=== PATIENT | female | born 1995 | race Caucasian/White ===

== ENCOUNTER 2023-11-18 16:15 | Outpatient (CLI) | payer OTHER, SELFPAY ==
[2023-11-18] VITALS (10 sets, daily range): BP systolic 117–138; BP diastolic 67–81; PULSE 76–106; TEMP 37.1; O2SAT 98; BMI 31.2
[2023-11-18 17:08] LABS: Hematocrit 32.5 % (37-47); Hemoglobin 11.1 g/dL (12.0-15.0); Mean Corp Hgb Conc 34.2 g/dL (32-36); Mean Corpuscular Hgb 29.5 pg (27.0-32.0); Mean Corpuscular Volume 86.4 fL (81-99); Mean Platelet Vol. 11.3 fl (6.2-12.0); Platelet Count 176 K/mm3 (150-450); RBC Distribution Width CV 12.1 % (11.6-14.6); RBC Distribution Width SD 37.9 fl (35.1-43.9); Red Blood Count 3.76 M/mm3 (4.2-5.4); White Blood Count 9.6 K/mm3 (4.4-11.0)
[2023-11-18 17:25] LABS: AST(SGOT) 17 U/L (15-37); Alanine Aminotransfer ALT/SGPT 20 U/L (13-56); Creatinine, Serum 0.55 mg/dL (0.55-1.02); EST Glomerular Filtration Rate 138 mL/min (>60); Est Glom Filt Rate - Afr Amer 167 mL/min (>60); Estimated Creatinine Clearance 174.25 ml/min; Uric Acid 3.8 mg/dL (2.6-6.0)
[2023-11-18] MEDS: Acetaminophen 500 MG Tablet 1000 MG PO (17:30)
[2023-11-18 17:59] LABS: Protein, Urine (Random) 6.8 mg/dL (<11.9); Protein:Creat Ratio 158 mg/g CRE (0-200)
--- NOTE | 2023-11-19 06:54 | OB.TRI.NOTE ---
HPI - General General Date of Service: 11/18/23 HPI Narrative BASIM BERNAL, is a 28 F who presents at 32 weeks . Presents for elevated BP in office in the 140s. Dull headache for about a week, 12/11. Seen by Jade Conley CNM. PFSH PFSH Allergy/AdvReac Type Severity Reaction Status Date / Time sulfamethoxazole Allergy Intermediate Hives Verified 11/18/23 17:03 [From Bactrim] trimethoprim [From Bactrim] Allergy Intermediate Hives Verified 11/18/23 17:03 Social History Smoking Status: Never smoker NST FHR Rate Baby A Baseline: 135 Variability:: Moderate Accelerations:: 15 x 15 Decelerations:: None NST Reactive:: Yes Assessment & Plan (1) Elevated blood pressure reading without diagnosis of hypertension: (2) 32 weeks gestation of : PLAN: Plan 1) Labs normal 2) BP stable and no elevation during visit 3) Preeclampsia signs and symptoms reviewed. 4) D/C home follow up outpatient.
== END 2023-11-18 18:30 | disposition home or self-care (01) ==
LOC: WPOUT 16:16 → WP 16:19
PROVIDERS: PCP Nurse Practitioner Family; Referring Provider Advanced Practice Midwife; Visit Provider Advanced Practice Midwife
DX: O99.891 Other specified diseases and conditions complicating pregnancy (principal); R03.0 Elevated blood-pressure reading, without diagnosis of hypertension; Z3A.32 32 weeks gestation of pregnancy
CPT/HCPCS: 36415; 59025; 59050; 82565; 82570; 84156; 84450; 84460; 84550; 85027; 99221; G0378

== ENCOUNTER 2023-11-28 12:25 | Outpatient (CLI) | payer OTHER, SELFPAY ==
[2023-11-28] VITALS (8 sets, daily range): BP systolic 115–125; BP diastolic 66–81; PULSE 80–96; TEMP 36.8; O2SAT 97; BMI 32.1
[2023-11-28 13:07] LABS: Hematocrit 31.8 % (37-47); Hemoglobin 10.9 g/dL (12.0-15.0); Mean Corp Hgb Conc 34.3 g/dL (32-36); Mean Corpuscular Hgb 29.3 pg (27.0-32.0); Mean Corpuscular Volume 85.5 fL (81-99); Mean Platelet Vol. 11.3 fl (6.2-12.0); Platelet Count 164 K/mm3 (150-450); RBC Distribution Width CV 11.9 % (11.6-14.6); Red Blood Count 3.72 M/mm3 (4.2-5.4); White Blood Count 11.8 K/mm3 (4.4-11.0)
[2023-11-28 13:18] LABS: AST(SGOT) 17 U/L (15-37); Alanine Aminotransfer ALT/SGPT 18 U/L (13-56); Creatinine, Serum 0.56 mg/dL (0.55-1.02); EST Glomerular Filtration Rate 136 mL/min (>60); Est Glom Filt Rate - Afr Amer 164 mL/min (>60); Estimated Creatinine Clearance 173.52 ml/min; Uric Acid 4.1 mg/dL (2.6-6.0)
[2023-11-28 13:33] LABS: Creatinine, Urine (random) < 13.00 mg/dL (NO RANGE EST.); Protein, Urine (Random) < 6.0 mg/dL (<11.9)
--- NOTE | 2023-12-24 10:25 | OB.TRI.HP_ITS ---
HPI - General General Date of Admission: 11/28/23 Date of Service: 11/28/23 Chief Complaint: RUQ pain HPI Narrative BASIM BERNAL, is a 28 F who presents with new RUQ pain that is not resolving. No BARBOSA or vision changes. No N/V. No ctx, vb, lof. Good FM. BP has been elevated at home. Maternal Data Information STEVE Calculator Estimated Delivery Date Method Current WG Current Estimate 01/13/24 Manual 37w 1d PFSH PFSH Medical History (Updated 12/24/23 @ 10:[address] Smita Mcpherson, DO) 32 weeks gestation of 36 weeks gestation of Cholestasis Elevated blood pressure reading without diagnosis of hypertension Home Medications vitamins-iron fumarate 65 mg iron-folic acid 1 mg tablet (Mynatal Plus) 1 tab PO DAILY 11/28/23 [History Last Taken 12/22/23 07:00 1 TAB] acetaminophen 500 mg tablet 1,000 mg (2 x 500 mg) PO Q6H PRN PRN Pain 1-10 Or Fever #0 tabs 12/24/23 [Rx Last Taken Unknown] benzocaine 20 %-menthol 0.5 % topical aerosol (Dermoplast (with menthol)) 1 spray topical TID PRN PRN perineal discomfort #0 grams 12/24/23 [Rx Last Taken Unknown] naproxen 500 mg tablet 500 mg PO Q8H PRN PRN Pain Score 1-10 #0 tabs 12/24/23 [Rx Last Taken Unknown] Allergy/AdvReac Type Severity Reaction Status Date / Time sulfamethoxazole Allergy Intermediate Hives Verified 12/22/23 19:38 [From Bactrim] trimethoprim [From Bactrim] Allergy Intermediate Hives Verified 12/22/23 19:38 Surgical History (Updated 12/22/23 @ 20:56 by Evelyn Sifuentes) History of surgery [place] teeth removed Social History Smoking Status: Never smoker History Elective abortions Hx Para 0 Spontaneous abortions Hx # Term Pregnancies Ectopic pregnancies Hx # Pregnancies Multiple births # of living children Physical Exam Const alert and no apparent distress General Appearance: comfortable HEENT normocephalic Resp normal respiratory effort GI soft to palpation and non-distended GI Narrative: Minimal RUQ tenderness, non acute Extremity normal to inspection Extremity Narrative: 3+ patellar reflexes NST FHR Rate Baby A Baseline: 130 Variability:: Moderate Accelerations:: 15 x 15 Decelerations:: None NST Reactive:: Yes Uterine Activity:: no ctx's Assessment & Plan (1) 33 weeks gestation of : PLAN: No other pre e symptoms. Pre e labs normal. No severe range BP's and BP stable. Known gHTN and cholestasis. Ok for discharge home and reviewed return precautions. Has follow up in office tomorrow. (2) RUQ pain:
== END 2023-11-28 14:25 | disposition home or self-care (01) ==
LOC: WPOUT 12:30 → WP 12:31
PROVIDERS: PCP Nurse Practitioner Family; Visit Provider Obstetrics & Gynecology
DX: O99.891 Other specified diseases and conditions complicating pregnancy (principal); R10.11 Right upper quadrant pain; Z3A.33 33 weeks gestation of pregnancy
CPT/HCPCS: 36415; 59025; 59050; 82565; 82570; 84156; 84450; 84460; 84550; 85027; 99221; G0378

== ENCOUNTER 2023-12-21 17:08 | Outpatient (CLI) | payer OTHER, SELFPAY ==
[2023-11-28 12:45] VITALS: RESP 16
[2023-12-21] VITALS (8 sets, daily range): BP systolic 96–138; BP diastolic 53–84; PULSE 88–113; RESP 16; TEMP 36.6–37.2; BMI 32.4
[2023-12-21] MEDS: 0.9 % NaCl (Sterile) Posiflush 10 mL IV (17:45)
[2023-12-21 18:14] LABS: Hematocrit 31.7 % (37-47); Hemoglobin 10.7 g/dL (12.0-15.0); Mean Corp Hgb Conc 33.8 g/dL (32-36); Mean Corpuscular Hgb 28.7 pg (27.0-32.0); Platelet Count 173 K/mm3 (150-450); RBC Distribution Width CV 12.3 % (11.6-14.6); RBC Distribution Width SD 37.2 fl (35.1-43.9); Red Blood Count 3.73 M/mm3 (4.2-5.4); White Blood Count 8.7 K/mm3 (4.4-11.0)
[2023-12-21 18:27] LABS: Protein, Urine (Random) 6.6 mg/dL (<11.9); Protein:Creat Ratio 175 mg/g CRE (0-200)
[2023-12-21 18:28] LABS: AST(SGOT) 23 U/L (15-37); Alanine Aminotransfer ALT/SGPT 20 U/L (13-56); Creatinine, Serum 0.66 mg/dL (0.55-1.02); EST Glomerular Filtration Rate 113 mL/min (>60); Est Glom Filt Rate - Afr Amer 136 mL/min (>60); Estimated Creatinine Clearance 148.09 ml/min; Uric Acid 4.4 mg/dL (2.6-6.0)
[2023-12-21] MEDS: Lactated Ringers 1,000 ML 999 ML IV (19:07)
[2023-12-21] MEDS: Acetaminophen 500 MG Tablet 1000 MG PO (19:08)
[2023-12-21] MEDS: Ondansetron ODT 4 MG Tablet PO (19:08)
--- NOTE | 2023-12-21 20:15 | OB.TRI.NOTE ---
HPI - General General Date of Admission: 12/21/23 Date of Service: 12/21/23 Chief Complaint: Headache and nausea HPI Narrative BASIM BERNAL, is a 28 F who presents with worsening headache and nausea. BP at work was elevated. Diagnosed with cholestasis and scheduled induction on . Tylenol did not help BARBOSA. Has been crying on and off today. Maternal Data Information Final STEVE: 01/13/24 Gestational age: 36+5 PFSH PFSH Home Medications vitamins-iron fumarate 65 mg iron-folic acid 1 mg tablet (Mynatal Plus) 1 tab PO DAILY 11/28/23 [History Last Taken 11/28/23 10:00] ursodiol 300 mg capsule 300 mg PO TID 11/28/23 [History Last Taken 11/28/23 10:00] Allergy/AdvReac Type Severity Reaction Status Date / Time sulfamethoxazole Allergy Intermediate Hives Verified 11/28/23 12:59 [From Bactrim] trimethoprim [From Bactrim] Allergy Intermediate Hives Verified 11/28/23 12:59 Social History Smoking Status: Never smoker ROS Constitutional Constitutional: Reports headache(s) Respiratory/Chest Respiratory/Chest: Reports none Gastrointestinal Gastrointestinal: Reports nausea; Denies change in bowel habits Genitourinary Genitourinary: Denies urinary frequency or urinary hesitancy Neurologic Neurologic: Reports systems reviewed and no addt'l complaints, except as documented Psychiatric Psychiatric: Reports none Physical Exam Const alert and oriented x3 General Appearance: cooperative and comfortable HEENT normocephalic and head/scalp atraumatic Eyes PERRL and EOMs intact bilaterally Neck full ROM Resp normal respiratory effort Effort and Inspection: able to speak in complete sentences Neuro oriented x3 and CN's II-XII intact bilaterally Psych mental status grossly normal and thought process normal NST FHR Rate Baby B Variability:: Moderate Accelerations:: 15 x 15 NST Reactive:: Yes FHR Category:: Category I Assessment & Plan (1) Headache in , antepartum: PLAN: PIH labs normal. All BPs below 140/90 Last 2 under 100/60 (2) 36 weeks gestation of : COMMENT: Headache improved with tylenol, IVF and zofran PLAN: Plan Discussed with patient and . Would like to go home and sleep and return for induction tomorrow. Head improved with Tylenol, Zofran and IVF. Reviewed precautions
== END 2023-12-21 20:20 | disposition home or self-care (01) ==
LOC: WPOUT 17:18 → WP 17:19
PROVIDERS: PCP Nurse Practitioner Family; Referring Provider Obstetrics & Gynecology; Visit Provider Obstetrics & Gynecology
DX: O99.891 Other specified diseases and conditions complicating pregnancy (principal); R51.9 Headache, unspecified; Z3A.36 36 weeks gestation of pregnancy
CPT/HCPCS: 96365; 96366; 36415; 59025; 59050; 82565; 82570; 84156; 84450; 84460; 84550; 85027; 99221; J7120; G0378

== ENCOUNTER 2023-12-22 18:55 | Inpatient (IN) | payer OTHER, SELFPAY ==
[2023-12-22 19:36] VITALS: BMI 32.5
[2023-12-22] MEDS: Lactated Ringers 1,000 ML 50 ML IV (20:01)
--- NOTE | 2023-12-22 20:17 | PCM.HP.OB ---
HPI - General General Date of Admission: 12/22/23 Date of Service: 12/22/23 Chief Complaint: induction of labor HPI Narrative BASIM BERNAL, is a 28 F who presents Maternal Data Information Final STEVE: 01/13/24 Gestational age: 36 6/7 PFSH PFS Home Medications vitamins-iron fumarate 65 mg iron-folic acid 1 mg tablet (Mynatal Plus) 1 tab PO DAILY 11/28/23 [History Last Taken 12/22/23 07:00 1 TAB] ursodiol 300 mg capsule 300 mg PO TID cholestasis 11/28/23 [History Last Taken 12/22/23 17:00 300 mg] Allergy/AdvReac Type Severity Reaction Status Date / Time sulfamethoxazole Allergy Intermediate Hives Verified 12/22/23 19:38 [From Bactrim] trimethoprim [From Bactrim] Allergy Intermediate Hives Verified 12/22/23 19:38 Social History Smoking Status: Never smoker ROS Constitutional Constitutional: Denies fatigue, fever(s) or malaise Eyes Eyes: Denies change in vision ENT HEENT: Denies dizziness or headache(s) Cardiovascular Cardiovascular: Denies chest pain, dyspnea or lightheadedness Respiratory/Chest Respiratory/Chest: Denies cough or dyspnea Gastrointestinal Gastrointestinal: Denies change in bowel habits Genitourinary Genitourinary: Denies burning urination or genital lesions Integumentary Integumentary: Denies rash Neurologic Neurologic: Denies confusion, dizziness, headache(s), numbness or weakness Vital Signs Vital Signs Vital Signs: Weight Weight: 94.461 kg Body Mass Index (BMI) 32.5 Physical Exam Const alert and no apparent distress General Appearance: cooperative HEENT normocephalic Resp normal respiratory effort Cardio regular rate GI soft to palpation GI Narrative: gravid, nontender, appropriate for gestational age Extremity no calf tenderness General Extremity: edema Skin no wounds Rashes: No rashes noted Psych activity/motor behavior normal Labs Labs Labs: Blood Type Pending Antibody Screen Pending Hct 32.7 % (37-47) L Hgb 11.1 g/dL (12.0-15.0) L Syphilis Total Ab Pending Assessment & Plan (1) 36 weeks gestation of : (2) Gestational hypertension: PLAN: Estimated weight is less than 4500 g and pelvis clinically adequate to expect vaginal delivery. Monitor for signs and symptoms of severe preeclampsia. Check preeclampsia labs. Patient will undergo Awad and Cytotec ripening with Pitocin and artificial rupture membranes for induction of labor. May have epidural or routine pain control measures as needed. Undergone cervical ripening for 37-week induction of labor for cholestasis and gestational hypertension. Awad placed over stylette through the internal cervical os and inflated to 30 cc. Placement over internal cervical os was confirmed and then placement of Cytotec 25 mcg in the posterior fourchette. Cervix 2/60/-2, mid position, medium consistency (3) Cholestasis during in third trimester: (4) Supervision of high risk , unspecified, third trimester:
[2023-12-22 20:22] LABS: Absolute Lymphocyte Count 2.08 X10^3/uL (0.83-4.51); Absolute Neutrophil Count 5.6 X10^3/uL (2.0-7.7); Basophil# 0.04 X10^3/uL; Basophil% 0.5 % (0-1); Eosinophil# 0.02 X10^3/uL; Eosinophils% 0.2 % (0-5); Hematocrit 32.7 % (37-47); Hemoglobin 11.1 g/dL (12.0-15.0); Lymphocyte # 2.08 X10^3/ul (0.83-4.51); Lymphocyte % 24.5 % (19-41); Mean Corp Hgb Conc 33.9 g/dL (32-36); Mean Corpuscular Hgb 28.8 pg (27.0-32.0); Mean Corpuscular Volume 84.7 fL (81-99); Mean Platelet Vol. 11.7 fl (6.2-12.0); Monocyte# 0.67 X10^3/uL; Monocyte% 7.9 % (0-10); NRBC Flagged by Analyzer 0 % (0-5); Neutrophil # 5.59 X10^3/uL (2.7-7.7); Neutrophil % 65.7 % (47-70); Platelet Count 161 K/mm3 (150-450); RBC Distribution Width CV 12.4 % (11.6-14.6); RBC Distribution Width SD 37.3 fl (35.1-43.9); Red Blood Count 3.86 M/mm3 (4.2-5.4); White Blood Count 8.5 K/mm3 (4.4-11.0)
[2023-12-22] MEDS: 0.9% Normal Saline Single 100 ML IV.SOLN. INTRA-UTER (20:30)
[2023-12-22] MEDS: miSOPROStol 25 MCG TABLET VAGINAL (20:38)
[2023-12-22 20:45] VITALS: BP 131/78; PULSE 77; PULSE 83; RESP 18; TEMP 36.9; O2SAT 98
[2023-12-22 20:52] VITALS: PULSE 84; O2SAT 98
[2023-12-22 20:59] LABS: Syphilis Antibodies Non-reactive
[2023-12-23] VITALS (63 sets, daily range): BP systolic 90–149; BP diastolic 50–109; PULSE 65–117; RESP 16–18; TEMP 36.8–38.3; O2SAT 93–100
[2023-12-23] MEDS: Oxytocin 15 Units/NS 250ml 15 UNITS/250 ML IV.SOLN 2 UNITS IV (00:52)
[2023-12-23] MEDS: LACTATED RINGERS 500 ML 999 ML IV ×3 (02:00→12:27)
[2023-12-23] MEDS: fentaNYL-bupivacaine (epidural) 100 ML BAG EPIDURAL ×2 (02:53→07:19)
[2023-12-23] MEDS: Ondansetron 4 MG/2 ML Vial IV (06:06)
[2023-12-23] MEDS: Lactated Ringers 1,000 ML 200 ML IV (08:13)
--- NOTE | 2023-12-23 09:04 | PCM.PN.CNM ---
Subjective Subjective Patient seen at bedside. Comfortable with epidural. Objective Data Objective Data Vital Signs: Vital Signs Temp Pulse Resp BP Pulse Ox 98.4 F 75 16 103/61 100 12/23/23 06:08 12/23/23 08:44 12/23/23 06:08 12/23/23 08:44 12/23/23 06:11 Weight: 208 lb 4 oz Body Mass Index (BMI) 32.5 Intake & Output: Intake and Output for Last 24 Hours 12/21/23 12/22/23 12/23/23 23:59 23:59 23:59 Intake Total 2025.83 / 2025.83 Output Total 800 / 800 1550 / 1550 Balance -800 / -800 476.83 / 476.83 Lab / Micro Data 12/22/23 20:00 Labs: Laboratory Results - last 24 hr 12/22/23 20:00: WBC 8.5, RBC 3.86 L, Hgb 11.1 L, Hct 32.7 L, MCV 84.7, MCH 28.8, MCHC 33.9, RDW Std Deviation 37.3, RDW Coeff of [place] 12.4, Plt Count 161, MPV 11.7, Immature Gran % (Auto) 1.200 H, Neut % (Auto) 65.7, Lymph % (Auto) 24.5, Sullivan % (Auto) 7.9, Eos % (Auto) 0.2, Baso % (Auto) 0.5, Absolute Neuts (auto) 5.6, Absolute Lymphs (auto) 2.08, Nucleated RBC % 0, Syphilis Total Ab Non-reactive, Antibody Screen NEGATIVE ROS Eyes Eyes: Denies blurry vision Cardiovascular Cardiovascular: Reports none; Denies chest pain at rest, chest pain with activity or dizziness Respiratory/Chest Respiratory/Chest: Denies cough or dyspnea Gastrointestinal Gastrointestinal: Reports none and other; Denies diarrhea or vomiting Genitourinary Genitourinary: Denies dysuria Musculoskeletal Musculoskeletal: Reports none Integumentary Integumentary: Reports none; Denies rash Neurologic Neurologic: Denies dizziness, headache(s) or other visual disturbances Psychiatric Psychiatric: Reports none Assessment & Plan (1) 37 weeks gestation of : (2) Supervision of high risk , unspecified, third trimester: (3) Cholestasis during in third trimester: (4) Gestational hypertension: (5) Encounter for induction of labor: PLAN: Plan Cat. 1 tracing Continue Pitocin IV and increase per orders Blood pressures stable- continue to monitor Comfortable with epidural Anticipate Dr. Nash updated and is collaborating physician
[2023-12-23] MEDS: Acetaminophen 500 MG Tablet PO (12:26)
[2023-12-23] MEDS: Oxytocin 15 Units/NS 250ml 15 UNITS/250 ML IV.SOLN 83 UNITS IV (16:53)
--- NOTE | 2023-12-23 18:40 | EX.PCM.OBRPT ---
Assessment & Plan (1) (spontaneous vaginal delivery): (2) Laceration, obstetrical, second degree: (3) Cholestasis: (4) Gestational hypertension: Maternal Data Information STEVE Calculator Estimated Delivery Date Method Current WG Current Estimate 01/13/24 Manual 37w 0d Vaginal Delivery Maternal Presentation Maternal Presentation: Medically Indicated Induction Maternal Presentation: G1 at 37 weeks for scheduled induction of labor for cholestasis and GHTN. Type of Induction: Pitocin, Awad Bulb and Amniotomy Medical Reason for Induction: Gestational Hypertension and Maternal Medical Condition: list: (Cholestasis) Operative Information Date of Procedure: 12/23/23 Pre-Operative Diagnosis: Term gestation, Induction of labor Post-Operative Diagnosis: , Live female Surgery / Procedure Performed: Spontaneous Vaginal Delivery Type of Anesthesia: Epidural Drain: Awad to straight drain Estimated Blood Loss: 300 Time of Delivery: 16:25 Findings Description of Procedure: Patient pushing well with contractions. With maternal effort, head delivered followed immediately by body without traction. Loose nuchal cord easily reduced. Vigorous female placed on maternal abdomen and attended to by nursing staff. Pitocin IV started for active management of the third stage of labor. 3 vessel cord clamped and cut by FOB after delay and placed skin to skin with patient. Cord blood collected. Placenta delivered spontaneously and intact. Second degree laceration repaired in usual fashion using Vicryl 3-0 Rapid. Hemostasis obtained. Fundus firm 2 below U. EBL [address]. APGARS 8/9. Dr. Hurd notified of delivery. Patient and bonding well at this time. Presentation: Vertex Amniotic Membrane Rupture Type: Artificial Time of Membrane Rupture: 0151 Amniotic Fluid Description: Clear Placental Delivery Description: Spontaneous Placenta Disposition: [facility] Cord Vessel Description: 3 Vessels Cord Entanglement: Around neck x 1, loose Nuchal Cord Compression: Without compression Infant A Gender: Female (1 minute): 8 (5 minute): 9 Delayed Cord Clamping: Yes Post Vaginal Delivery Medications Given After Delivery: IV Pitocin Episiotomy Description: None Laceration: 2nd degree Complication Complications: None
[2023-12-23] MEDS: Naproxen 500 MG Tablet PO (19:16)
--- NOTE | 2023-12-23 22:58 | NURSING ---
epidural catheter removed, blue tip intact.
[2023-12-23] MEDS: Acetaminophen 500 MG Tablet 1000 MG PO (23:42)
[2023-12-24] VITALS (8 sets, daily range): BP systolic 105–116; BP diastolic 58–73; PULSE 62–78; RESP 16; TEMP 36.2–36.5; O2SAT 97–100
--- NOTE | 2023-12-24 07:07 | DS.PCM_ITS ---
Providers Date of Admission: 12/22/23 Primary Care Physician: Alondra Morelos BUSINESS DATA ANALYST-C Reason For Visit: VAGINAL DELIVERY Diagnosis Discharge Diagnosis (1) Cholestasis during in third trimester: Status: Acute Code(s): O26.613 - Liver and biliary tract disorders in , third trimester; K83.1 - Obstruction of bile duct (2) Encounter for induction of labor: Status: Acute Code(s): Z34.90 - Encounter for supervision of normal , unspecified, unspecified trimester (3) (spontaneous vaginal delivery): Status: Acute Code(s): O80 - Encounter for full-term uncomplicated delivery (4) Laceration, obstetrical, second degree: Status: Acute Code(s): O70.1 - Second degree perineal laceration during delivery Plan PPD 1 Pain control Routine care support Desires discharge home later today Medications at Discharge Home Medications vitamins-iron fumarate 65 mg iron-folic acid 1 mg tablet (Mynatal Plus) 1 tab PO DAILY 11/28/23 acetaminophen 500 mg tablet 1,000 mg (2 x 500 mg) PO Q6H PRN PRN Pain 1-10 Or Fever #0 tabs 12/24/23 benzocaine 20 %-menthol 0.5 % topical aerosol (Dermoplast (with menthol)) 1 spray topical TID PRN PRN perineal discomfort #0 grams 12/24/23 naproxen 500 mg tablet 500 mg PO Q8H PRN PRN Pain Score 1-10 #0 tabs 12/24/23 Hospital Course Operations None Procedures None Summary of Care Provided Minutes Spent on Discharge: 10 Hospital Course: Patient had . Hospital course was uneventful Physical Exam Narrative Patient seen at bedside. Resting comfortably. Ambulation and voiding without difficulty. Pain is minimal and controlled. with minimal support. Lochia mild. Desires discharge home later today. Const alert and no apparent distress General Appearance: cooperative and comfortable Exam Limitations: no limitations HEENT normocephalic Eyes General Eye: normal appearance of both eyes Neck full ROM General: normal visual inspection Chest Chest: symmetrical chest wall rise Resp normal respiratory effort and normal air movement Effort and Inspection: symmetric chest movement Auscultation: clear to auscultation bilaterally Cardio regular rate and regular rhythm GI normal to inspection, nondistended, normoactive bowel sounds Back/Spine normal ROM Extremity full ROM and no calf tenderness General Extremity: normal exam except as noted Skin no rashes or lesions noted Neuro CN's II-XII intact bilaterally Psych mental status grossly normal Weight / BMI Weight Weight: 208 lb 4 oz Body Mass Index (BMI) 32.5 ABG / Lab / Microbiology Data 12/22/23 20:00 D/C Instructions Discharge Diet: No restrictions May resume sexual activity in: 6-8 weeks Weight Bearing Status: Weight bearing as tolerated Call your doctor if you observe: Fever of 101 or Higher, Inability to urinate, Using more than 1 pad per hour, Shortness of breath, Chest pain, Calf discomfort and Uncontrolled pain Please Follow Up With: Jade Conley CNM When: 2 weeks virtual visit/ 6 weeks in office Meaningful Use Info Meaningful Use Diagnoses (Choose all that apply): None applicable Discharge Plan Admission Admit Date/Time: 12/22/23 18:55 Primary Reason for Your Visit: Labor and Delivery Attending Provider: Jade Conley Primary Care Provider: Alondra Morelos Discharge Orders/Prescriptions Prescriptions: New Dermoplast (with menthol) 20-0.5 % Aerosol 1 spray topical TID PRN PRN (Reason: perineal discomfort) Qty: 0 0RF Protocol: *Topical Application Instructions APPLICATION INSTRUCTIONS: 1 spray 3 times a day as needed for perineal discomfort acetaminophen 500 mg Tablet 1,000 mg PO Q6H PRN PRN (Reason: Pain 1-10 Or Fever) Qty: 0 0RF naproxen 500 mg Tablet 500 mg PO Q8H PRN PRN (Reason: Pain Score 1-10) Qty: 0 0RF Continued Mynatal Plus 65 mg iron- 1 mg tablet 1 tab PO DAILY Discontinued ursodiol 300 mg capsule 300 mg PO TID Referrals / Follow Up: Jade Conley CNM [Med Staff - [facility]] - Alondra Morelos NP-C [Primary Care Provider] - Disposition Disposition (needs filled in before D/C Order can be placed): Home, Self Care
[2023-12-24] MEDS: Benzocaine/Lanolin/Aloe Vera 1 SPRAY EACH TOPICAL ×2 (07:57→18:32)
[2023-12-24] MEDS: Naproxen 500 MG Tablet PO ×2 (07:58→18:32)
[2023-12-24] MEDS: Acetaminophen 500 MG Tablet 1000 MG PO (16:43)
--- NOTE | 2023-12-28 13:45 | NURSING ---
Follow up phone call made, no answer, voicemail left
== END 2023-12-24 19:12 | disposition home or self-care (01) | DRG 807 ==
PROVIDERS: Obstetrics & Gynecology; Admitting Provider Advanced Practice Midwife; PCP Nurse Practitioner Family; Visit Provider Advanced Practice Midwife
DX: O13.4 Gestational [pregnancy-induced] hypertension without significant proteinuria, complicating childbirth (principal); Z37.0 Single live birth; O26.643 Intrahepatic cholestasis of pregnancy, third trimester; O69.81X0 Labor and delivery complicated by cord around neck, without compression, not applicable or unspecified; O70.1 Second degree perineal laceration during delivery; Z3A.37 37 weeks gestation of pregnancy; Z79.899 Other long term (current) drug therapy
CPT/HCPCS: 59025; 59050; 85025; 86780; 86850; 86900; 86901; 99221; J7120; G0378; J2405